=== PATIENT | female | born 2000 | race Caucasian/White ===

== ENCOUNTER 2022-06-14 08:28 | Emergency (ER) | payer BC, MEDICAID, SELFPAY ==
[2022-06-14] VITALS (9 sets, daily range): BP systolic 111–128; BP diastolic 71–90; PULSE 76–99; RESP 3–19; TEMP 36.4; O2SAT 99–100
--- NOTE | ~2022-06-14 | CT_ITS ---
EXAMINATION: CT brain wo con DATE: 06/14/2022 09:41 INDICATION: Head injury. Dizziness. TECHNIQUE: Computed tomography (CT) of the head was performed without intravenous contrast. The mA wa s adjusted according to patient size. Iterative reconstruction technique was employed. The dose-lengt h product was 605.33 mGy-cm. COMPARISON: None FINDINGS: There is no intracranial hemorrhage, acute infarction, or abnormal intracranial mass lesion . The ventricles are normal in size. The orbits are normal. The paranasal sinuses are clear. The mast oid air cells are normal. IMPRESSION: 1. Normal brain. Reviewed, dictated and finalized at location A. IMPRESSION: 1. Normal brain.
--- NOTE | ~2022-06-14 | CT_ITS ---
EXAMINATION: CT cervical spine wo con DATE: 06/14/2022 09:41 INDICATION: Head injury. Dizziness. TECHNIQUE: Computed tomography (CT) of the cervical spine was performed without intravenous contrast. Automated exposure control and iterative reconstruction technique were employed. The dose-length pro duct was 136.95 mGy-cm. COMPARISON: None FINDINGS: There is mild kyphosis of cervical spine. Vertebral body heights and intervertebral disc he ights are normal. At C7-T1, there is mild bilateral facet joint osteoarthritis. No neural foraminal s tenosis or central canal stenosis. IMPRESSION: 1. No fracture. Reviewed, dictated and finalized at location A. IMPRESSION: 1. No fracture.
--- NOTE | 2022-06-14 09:17 | ED.DIZZY ---
HPI - Dizziness General Chief Complaint: Dizziness Stated Complaint: headaches, dizzy Time Seen by Provider: 06/14/22 08:53 History of Present Illness HPI Narrative: 21-year-old female presents the emergency room for evaluation of dizziness and inability to get a good night sleep for 3 days. Patient states that she slipped coming out of the bathroom and striking her head on the ground. Denies any altered mental status or loss of consciousness at that time. Patient does state that she vomited twice following the event. Was seen in urgent care to have a forehead wound closed with Steri-Strips and was told to go to the emergency room if she were to experience any symptoms related to head injury. Presently patient is alert and oriented x4, denies any memory or concentration issues. Denies hearing or vision changes. Related Data Home Medications Medication Instructions Recorded Confirmed amitriptyline 25 mg tablet mg 06/14/22 Allergies Allergy/AdvReac Type Severity Reaction Status Date / Time No Known Allergies Allergy Verified 06/14/22 08:42 Review of Systems Review of Systems: CONSTITUTIONAL: Denies fever, chills, or sweats. EYES: Denies visual changes, redness, or discharge. ENT: Denies rhinorrhea, congestion, sore throat, or otalgia. CARDIOVASCULAR: Denies chest pain, palpitations, or edema. RESPIRATORY: Denies cough or dyspnea. GASTROINTESTINAL: Denies abdominal pain, nausea, vomiting, or diarrhea. GENITOURINARY: Denies dysuria or hematuria. SKIN: Denies rash or itching. MUSCULOSKELETAL: Denies back pain, joint pain, or myalgia. NEUROLOGIC: Reports headache, dizziness PSYCHIATRIC: Denies anxiety or depression. Exam Narrative: GENERAL: Well-appearing, well-nourished, no physical limitations, and in no acute distress. HEAD: Normocephalic, atraumatic. EYES: Conjunctivae normal, PERRLA and EOMI. ENT: External nose normal, Nares clear, no rhinorrhea or epistaxis. Mucous membranes moist. Oropharynx without tonsillar hypertrophy exudate or other lesions. External ears normal, bilateral TMs normal bilaterally NECK: Supple. No meningeal signs. CHEST: Clear to auscultation. No respiratory distress. No wheezes rales or rhonchi. No tenderness. HEART: Regular rate and rhythm. No murmur heard. Normal peripheral pulses. BACK: No cervical/thoracic/lumbar tenderness, step-offs, bony abnormality; FROM EXTREMITIES: Normal range of motion. No edema. No clubbing or cyanosis SKIN: Warm, dry, no rash. No noted wounds NEURO: No focal deficits. Alert and oriented x3. MAEW. CN's II-XI intact bilaterally, normal gait PSYCH: Cooperative. Normal mood and affect. Course Vital Signs Vital signs: Vital Signs Temperature 36.4 C 06/14/22 08:37 Pulse Rate 94 06/14/22 08:37 Respiratory Rate 18 06/14/22 08:37 Blood Pressure 128/83 06/14/22 08:37 Pulse Oximetry 100 06/14/22 08:37 Oxygen Delivery Room Air 06/14/22 08:37 Temperature 36.4 C 06/14/22 08:37 Pulse Rate 93 06/14/22 08:43 Respiratory Rate 18 06/14/22 08:37 Blood Pressure 128/83 06/14/22 08:37 Pulse Oximetry 100 06/14/22 08:37 Oxygen Delivery Room Air 06/14/22 08:37 MDM - Dizziness Lab Data Labs: UCG Bedside Result Negative Reference Range: Negative Imaging Data Radiologist's impression: Impressions Head CT 06/14/22 09:42 IMPRESSION: 1. Normal brain. Cervical Spine CT 06/14/22 09:43 IMPRESSION: 1. No fracture. Discharge Plan Discharge Clinical Impression: Concussion, Head injury Patient Disposition: Home, Self-Care Condition: Stable Instructions: Antibiotic Form, Concussion (ED) Prescriptions: No Action amitriptyline 25 mg tablet Follow-up/Referrals: Daija,DAKOTAH Mays [Primary Care Provider] - Time of Disposition: 10:07
== END 2022-06-14 10:15 | disposition home or self-care (01) ==
PROVIDERS: Emergency Provider Nurse Practitioner Family; PCP Physician Assistant
DX: S06.0X0A Concussion without loss of consciousness, initial encounter (principal); W01.0XXA Fall on same level from slipping, tripping and stumbling without subsequent striking against object, initial encounter
CPT/HCPCS: 70450; 72125; 81025; 99284